=== PATIENT | male | born 1960 | race Two or more races ===

== ENCOUNTER → 2024-07-18 | Outpatient (CLI) | payer MEDICAID, SELFPAY ==
--- NOTE | 2024-07-18 07:00 | XR_ITS ---
Examination: MRI lumbar spine without contrast Date and time of exam: July 18, 2024 0725 hours INDICATIONS: Low back pain 2 years radiating down both legs Technique: Multiple MRI axial and sagittal sections lumbar spine. Sagittal T2-weighted images, TR 3500, TE 118 T1 weighted transverse sections, TR 688 T8.5, T2-weighted sagittal sections T1 weighted sagittal sections TR 621, TE 30 T2 axial sections, TR 4, 190, TE 84. Findings: Adequate alignment lumbar vertebral bodies on the lateral view No lumbar fracture Diffuse lumbar disc desiccation No spondylolisthesis L5-S1 3 mm central lumbar disc bulge L4-L5 6 mm central lumbar disc bulge, extending to the right foramen with mild right L4 ganglionic compression L3-L4 7 mm central lumbar disc bulge L2-L3 4 mm central lumbar disc bulge L1-L2 no disc protrusion IMPRESSION: Lumbar disc bulges as above, most severe L4-L5, 6 mm central lumbar disc bulge extending to the right foraminal mild right L4 ganglionic compression
== END | disposition home or self-care (01) ==
PROVIDERS: PCP Physician Assistant; Referring Provider Physician Assistant; Visit Provider Physician Assistant
DX: M51.369 Other intervertebral disc degeneration, lumbar region without mention of lumbar back pain or lower extremity pain (principal); G95.20 Unspecified cord compression
CPT/HCPCS: 72148